=== PATIENT | male | born 1960 | race Caucasian/White ===

== ENCOUNTER 2021-04-30 07:46 | Outpatient (RCR) | payer OTHER, SELFPAY ==
[2021-04-30 12:02] VITALS: BP 160/82; PULSE 84; RESP 20; TEMP 36.8; O2SAT 97
[2021-04-30] MEDS: diphenhydrAMINE HCl CAP 25 MG CAPSULE PO (12:04)
[2021-04-30] MEDS: FAMOTIDINE 20 MG TABLET PO (12:05)
[2021-04-30] MEDS: ACETAMINOPHEN 325 MG TABLET 650 MG PO (12:05)
[2021-04-30 13:37] VITALS: BP 144/76; PULSE 66
== END 2021-04-30 17:00 ==
LOC: AMCINF 07:46
PROVIDERS: PCP Nurse Practitioner Family; Referring Provider Nurse Practitioner Family; Visit Provider Internal Medicine Hematology & Oncology
DX: U07.1 COVID-19 (principal); I10 Essential (primary) hypertension; D84.9 Immunodeficiency, unspecified
CPT/HCPCS: A9270; M0247